=== PATIENT | male | born 1965 | race Caucasian/White ===

== ENCOUNTER 2018-04-18 09:52 | Day surgery (SDC) | payer BC ==
[2018-04-18] MEDS ORDERED: FENTAnyl 50 MCG/ML VIAL IV (10:30)
[2018-04-18] MEDS ORDERED: PROPOFOL 40 ML (11:10)
== END 2018-04-18 13:08 | disposition home or self-care (01) ==
LOC: GIL 09:52
DX: Z12.11 Encounter for screening for malignant neoplasm of colon (principal); K64.8 Other hemorrhoids
CPT/HCPCS: 45378